=== PATIENT | male | born 1970 | race Hispanic/Latino ===

== ENCOUNTER 2018-11-14 13:00 | Emergency (ER) | payer BC, OTHER ==
[2018-11-14] MEDS ORDERED: ASPIRIN 325 MG TABLET ONE (13:47)
[2018-11-14 13:52] LABS: BASOPHILS % (AUTO) 0.5 % (0.0-5.0); HEMATOCRIT 44.9 % (42-54); LYMPHOCYTES % (AUTO) 26.1 % (21.0-51.0); MEAN CORPUSCULAR HEMOGLOBIN 31.3 pg (27.0-33.0); MEAN CORPUSCULAR HGB CONC 34.8 g/dL (32.0-36.0); MONOCYTES % (AUTO) 6.8 % (3.0-13.0); NEUTROPHILS % (AUTO) 65.6 % (40.0-77.0); NUCLEATED RED BLOOD CELLS 0.1 % (0.0-0.19); PLATELET COUNT (AUTO) 260 K/uL (130-400); RED BLOOD CELL COUNT(AUTO) 4.99 MIL/uL (4.50-6.20); RED CELL DISTRIBUTION WIDTH 12.9 % (11.0-15.5); WHITE BLOOD COUNT (AUTO) 9.3 K/uL (4.8-10.8)
[2018-11-14 14:08] LABS: CREATININE 0.7 mg/dL (0.5-1.5); POTASSIUM 3.8 mmol/L (3.5-5.1)
[2018-11-14 14:14] LABS: ALBUMIN 3.5 g/dL (3.5-5.0); BILIRUBIN,TOTAL 0.3 mg/dL (0.2-1.0); TOTAL PROTEIN, SERUM 7.3 g/dL (6.0-8.3)
== END 2018-11-14 15:07 | disposition home or self-care (01) ==
LOC: EDH 13:00
DX: I10 Essential (primary) hypertension (principal); M54.2 Cervicalgia; Z88.2 Allergy status to sulfonamides
CPT/HCPCS: 36415; 71045; 80053; 82550; 84484; 85025; 93005

== ENCOUNTER 2019-05-21 08:16 | Emergency (ER) | payer SELFPAY ==
[2019-05-21] MEDS ORDERED: ASPIRIN 325 MG TABLET ONE (08:29)
[2019-05-21 08:36] LABS: BASOPHILS % (AUTO) 0.4 % (0.0-5.0); EOSINOPHILS % (AUTO) 0.8 % (0.0-8.0); HEMATOCRIT 46.6 % (42-54); LYMPHOCYTES % (AUTO) 27.5 % (21.0-51.0); MEAN CORPUSCULAR HEMOGLOBIN 30.1 pg (27.0-33.0); MEAN CORPUSCULAR HGB CONC 34.8 g/dL (32.0-36.0); MEAN CORPUSCULAR VOLUME 86.5 fL (79-99); MONOCYTES % (AUTO) 6.3 % (3.0-13.0); NEUTROPHILS % (AUTO) 64.6 % (40.0-77.0); PLATELET COUNT (AUTO) 274 K/uL (130-400); RED BLOOD CELL COUNT(AUTO) 5.39 MIL/uL (4.50-6.20); WHITE BLOOD COUNT (AUTO) 8.3 K/uL (4.8-10.8)
[2019-05-21 08:48] LABS: CREATININE 0.9 mg/dL (0.5-1.5); POTASSIUM 4.4 mmol/L (3.5-5.1)
[2019-05-21 08:51] LABS: INR 0.95 (0.85-1.15); PARTIAL THROMBOPLASTIN TIME 25.2 SEC (26.3-35.5)
[2019-05-21 08:54] LABS: ALBUMIN 3.8 g/dL (3.5-5.0); BILIRUBIN,TOTAL 0.4 mg/dL (0.2-1.0); TOTAL PROTEIN, SERUM 7.9 g/dL (6.0-8.3)
[2019-05-21] MEDS ORDERED: DIAZEPAM 5 MG TABLET ONE (09:11)
[2019-05-21 09:20] LABS: AMPHET/METH SCREEN,URINE NEGATIVE (NEGATIVE); BARBITURATE SCREEN, URINE NEGATIVE (NEGATIVE); BENZODIAZEPINES SCREEN,URINE NEGATIVE (NEGATIVE); CANNABINOID SCREEN,URINE NEGATIVE (NEGATIVE); COCAINE SCREEN,URINE NEGATIVE (NEGATIVE); OPIATE SCREEN,URINE NEGATIVE (NEGATIVE); PHENCYCLIDINE SCREEN,URINE NEGATIVE (NEGATIVE)
[2019-05-21 10:06] LABS: B-TYPE NATRIURETIC PEPTIDE 11 pg/mL (0-100)
== END 2019-05-21 12:02 | disposition home or self-care (01) ==
LOC: EDH 08:16
DX: R07.9 Chest pain, unspecified (principal); R42 Dizziness and giddiness; Z88.2 Allergy status to sulfonamides
CPT/HCPCS: 36415; 71045; 80053; 80305; 82550; 83880; 84484; 85025; 85610; 85730; 93005

== ENCOUNTER 2020-11-27 11:25 | Emergency (ER) | payer SELFPAY ==
[~2020-11-27] VITALS: Ht 170.2 cm; Wt 97.5 kg
[2020-11-27 11:27] VITALS: BP 145/90
[2020-11-27 12:07] LABS: BASOPHILS % (AUTO) 0.4 % (0.0-5.0); EOSINOPHILS % (AUTO) 0.8 % (0.0-8.0); HEMATOCRIT 44.5 % (42-54); LYMPHOCYTES % (AUTO) 26.8 % (21.0-51.0); MEAN CORPUSCULAR HEMOGLOBIN 29.8 pg (27.0-33.0); MEAN CORPUSCULAR HGB CONC 33.9 g/dL (32.0-36.0); MEAN CORPUSCULAR VOLUME 87.9 fL (79-99); MONOCYTES % (AUTO) 6.9 % (3.0-13.0); NEUTROPHILS % (AUTO) 64.9 % (40.0-77.0); PLATELET COUNT (AUTO) 259 K/uL (130-400); RED BLOOD CELL COUNT(AUTO) 5.06 MIL/uL (4.50-6.20); RED CELL DISTRIBUTION WIDTH 12.1 % (11.0-15.5); WHITE BLOOD COUNT (AUTO) 9.9 K/uL (4.8-10.8)
[2020-11-27] MEDS ORDERED: KETOROLAC 30MG VIAL (30MG/ML) IM ONE (14:45)
[2020-11-27] MEDS ORDERED: DIPH,PERTUSS(ACELL),TET VAC/PF 0.5 ML VIAL IM ONE (14:45)
[2020-11-27] MEDS ORDERED: CLINDAMYCIN 150 MG CAP PO SCH (14:45)
[2020-11-27] MEDS ORDERED: CLIN-141 PO (14:54)
[2020-11-27] MEDS ORDERED: IBUP-2070 PO (14:54)
[2020-11-27] MEDS ORDERED: MUPI22O TP (14:54)
[2020-11-27] MEDS ORDERED: TETANUS/DIPHTHERIA TOXOID [ADULT] 0.5 ML VIAL IM ONE ×2 (15:30→15:35)
== END 2020-11-27 15:11 | disposition home or self-care (01) ==
LOC: EDH 11:25
DX: S91.032A Puncture wound without foreign body, left ankle, initial encounter (principal); L03.116 Cellulitis of left lower limb; I10 Essential (primary) hypertension; Z88.2 Allergy status to sulfonamides; Z79.1 Long term (current) use of non-steroidal anti-inflammatories (NSAID); W26.8XXA Contact with other sharp object(s), not elsewhere classified, initial encounter; Y93.89 Activity, other specified; Y92.89 Other specified places as the place of occurrence of the external cause; Y99.8 Other external cause status
CPT/HCPCS: 36415; 73600; 85025; 90471; 90714; 96372; 99284; J1885; 90715

== ENCOUNTER 2023-12-05 16:16 | Emergency (ER) | payer OTHER ==
[~2023-12-05] VITALS: Ht 170.2 cm; Wt 97.5 kg
[~2023-12-05 16:16] MED LIST: CLIN-141 PO; IBUP-2070 PO; MUPI22O TP
[2023-12-05 16:39] LABS: BASOPHILS # (AUTO) 0.02 K/uL (0.00-0.20); BASOPHILS % (AUTO) 0.2 % (0.0-5.0); EOSINOPHILS # (AUTO) 0.04 K/uL (0.00-0.70); EOSINOPHILS % (AUTO) 0.3 % (0.0-8.0); HEMATOCRIT 43.3 % (42-54); IMMATURE GRANULOCYTE ABSOLUTE 0.03 K/uL (0-1); LYMPHOCYTES # (AUTO) 1.5 K/uL (1.0-4.8); LYMPHOCYTES % (AUTO) 12.1 % (21.0-51.0); MEAN CORPUSCULAR HEMOGLOBIN 29.8 pg (27.0-33.0); MEAN CORPUSCULAR HGB CONC 35.3 g/dL (32.0-36.0); MEAN CORPUSCULAR VOLUME 84.2 fL (79-99); MONOCYTES # (AUTO) 0.9 K/uL (0.1-1.0); MONOCYTES % (AUTO) 7.3 % (3.0-13.0); NEUTROPHILS # (AUTO) 9.7 K/uL (1.8-7.7); NEUTROPHILS % (AUTO) 79.9 % (40.0-77.0); PLATELET COUNT (AUTO) 247 K/uL (130-400); RED BLOOD CELL COUNT(AUTO) 5.14 MIL/uL (4.50-6.20); RED CELL DISTRIBUTION WIDTH 12.2 % (11.0-15.5); WHITE BLOOD COUNT (AUTO) 12.1 K/uL (4.8-10.8)
[2023-12-05 16:54] LABS: CREATININE 0.8 mg/dL (0.5-1.3); POTASSIUM 3.4 mmol/L (3.5-5.1)
[2023-12-05 16:58] LABS: ALBUMIN 3.6 g/dL (3.5-5.0); BILIRUBIN,TOTAL 0.4 mg/dL (0.2-1.0); TOTAL PROTEIN, SERUM 7.5 g/dL (6.0-8.3)
[2023-12-05] MEDS: 0.9%NACL 1000ML 1,000 ML IV ONE (17:11)
[2023-12-05] MEDS: CEFTRIAXONE 2GM VIAL IVPB ONE (17:11)
[2023-12-05] MEDS: ACETAMINOPHEN 500 MG TABLET PO ONE ×2 (17:12→17:16)
[2023-12-05] MEDS: ONDANSETRON 4MG INJ IVP ONE (17:12)
[2023-12-05 17:30] LABS: APPEARANCE,URINE CLEAR (CLEAR); BILIRUBIN,URINE NEGATIVE (NEGATIVE); COLOR,URINE LIGHT-YELLOW (YELLOW); GLUCOSE, URINE (UA) NEGATIVE (NEGATIVE); KETONES,URINE NEGATIVE (NEGATIVE); LEUKOCYTE ESTERASE ,URINE NEGATIVE Leu/uL (NEGATIVE); NITRATE,URINE NEGATIVE (NEGATIVE); OCCULT BLOOD,URINE SMALL (NEGATIVE); PROTEIN,URINE NEGATIVE (NEGATIVE); UROBILINOGEN,URINE 0.2 mg/dL (0.2-1.0)
[2023-12-05 17:33] LABS: ADD UA MICROSCOPIC YES
[2023-12-05 17:36] LABS: MUCUS,URINE RARE LPF (None Seen)
[2023-12-05 17:43] LABS: COVID19 (SARS ANTIGEN RAPID) PRESUMPTIVE NEGATIVE (NEGATIVE); INFLUENZA TYPE A Negative For Type A (NEGATIVE); INFLUENZA TYPE B Negative For Type B (NEGATIVE)
[2023-12-05 18:19] VITALS: TEMP 99.6
[2023-12-05] MEDS ORDERED: LOPE2CAP PO (18:56)
[2023-12-05] MEDS ORDERED: ONDA-243 PO (18:56)
[2023-12-05 19:04] VITALS: BP 145/78; PULSE 84; RESP 20; O2SAT 97
== END 2023-12-05 19:04 | disposition home or self-care (01) ==
LOC: EDH 16:16
DX: K52.9 Noninfective gastroenteritis and colitis, unspecified (principal); E86.0 Dehydration; I10 Essential (primary) hypertension; Z20.822 Contact with and (suspected) exposure to COVID-19; Z79.899 Other long term (current) drug therapy; Z98.890 Other specified postprocedural states; Z88.2 Allergy status to sulfonamides
CPT/HCPCS: 99285; 96365; 71045; 96375; 87426; 80053; 85025; 87040 ×2; 87804 ×2; 83605; 81001; 36415; 93005; J7030; J0696; J2405

== ENCOUNTER 2023-12-25 19:08 | Emergency (ER) | payer OTHER ==
[~2023-12-25] VITALS: Ht 170.2 cm; Wt 97.5 kg
[~2023-12-25 19:08] MED LIST changes: +LOPE2CAP PO; +ONDA-243 PO
[2023-12-25 19:38] LABS: RAPID GROUP A STREP negative (NEGATIVE)
[2023-12-25 19:48] LABS: COVID19 (SARS ANTIGEN RAPID) PRESUMPTIVE NEGATIVE (NEGATIVE); INFLUENZA TYPE A Negative For Type A (NEGATIVE); INFLUENZA TYPE B Negative For Type B (NEGATIVE)
[2023-12-25] MEDS ORDERED: AMOX1TAB16 PO (19:51)
[2023-12-25 20:22] VITALS: TEMP 100.2
[2023-12-25] MEDS: ACETAMINOPHEN 500 MG TABLET PO ONE (20:22)
[2023-12-25] MEDS: CEFTRIAXONE 1G VIAL IM ONE (20:37)
[2023-12-25 20:52] VITALS: BP 149/89; PULSE 97; RESP 20; O2SAT 99
== END 2023-12-25 20:53 | disposition home or self-care (01) ==
LOC: EDH 19:08
DX: B34.9 Viral infection, unspecified (principal); K02.9 Dental caries, unspecified; I10 Essential (primary) hypertension; Z20.822 Contact with and (suspected) exposure to COVID-19; Z79.899 Other long term (current) drug therapy; Z98.890 Other specified postprocedural states; Z88.2 Allergy status to sulfonamides
CPT/HCPCS: 99283; 87426; 87880; 87804 ×2; 96372; J0696